=== PATIENT | male | born 1960 ===

== ENCOUNTER 2023-08-16 06:36 | Day surgery (SDC) | payer OTHER ==
[2023-08-16] MEDS ORDERED: CEFAZOLIN SODIUM 1,000 MG VIAL ONE (08:52)
[2023-08-16] MEDS ORDERED: MORPHINE SULFATE 4 MG in 0.9 % SODIUM CHLORIDE 9 ML IV PRN (09:30)
[2023-08-16] MEDS ORDERED: ONDANSETRON HCL 2 MG/ML VIAL IV ONE (09:30)
[2023-08-16] MEDS ORDERED: MEPERIDINE HCL/PF 25 MG/ML VIAL IV PRN (09:30)
[2023-08-16] MEDS ORDERED: CEFAZOLIN SODIUM 1,000 MG VIAL IV ONE (10:30)
== END 2023-08-16 15:10 | disposition home or self-care (01) ==
LOC: CIR.AMB 06:36
PROVIDERS: ATTEND Orthopaedic Surgery Hand Surgery
DX: M19.032 Primary osteoarthritis, left wrist (principal); G56.02 Carpal tunnel syndrome, left upper limb; Z88.8 Allergy status to other drugs, medicaments and biological substances; Z20.822 Contact with and (suspected) exposure to COVID-19